=== PATIENT | male | born 1995 | race Caucasian/White ===

== ENCOUNTER 2016-09-12 11:40 | Emergency (ER) | payer BC ==
[2016-09-12 12:05] VITALS: BP 125/65
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
--- NOTE | 2016-09-12 13:49 | US ---
Right groin ultrasound: Multiple real-time images of the right groin were obtained. Complicated cystic and solid abnormality is identified within the right groin. No blood flow is seen on Doppler evaluation within this finding. Finding measures 4.3 x 3.1 x 5.7 cm. Impression: 1. Complicated cystic and solid abnormality within the right groin. Please correlate if patient has had any prior trauma for this to represent complicated hematoma. Finding is otherwise nonspecific regarding etiology. Diagnostic code #3
[2016-09-12] MEDS ORDERED: Lidocaine 1% 50 ML MDV INJECT ONE (14:13)
== END 2016-09-12 15:30 | disposition home or self-care (01) ==
LOC: JD.ED 11:40
DX: S30.1XXA Contusion of abdominal wall, initial encounter (principal); Z79.899 Other long term (current) drug therapy; V19.9XXA Pedal cyclist (driver) (passenger) injured in unspecified traffic accident, initial encounter
CPT/HCPCS: 10160; 76881-26-RT; 76881-RT; 99283-25; 99284-25